=== PATIENT | female | born 1995 | race African-American/Black ===

== ENCOUNTER 2017-05-11 15:28 | Emergency (ER) | payer OTHER ==
[~2017-05-11] VITALS: Ht 160 cm; Wt 80.0 kg
[2017-05-11 15:30] VITALS: BP 135/85; PULSE 109; RESP 18; TEMP 97.7; O2SAT 100
--- NOTE | 2017-05-11 17:20 | PD ---
HPI Chief Complaint: GI Complaint Time Seen by Provider: 16:59 Travel History International Travel<30 days: No Contact w/Intl Traveler<30days: No Traveled to known affect area: No History of Present Illness HPI 21-year-old female presents to the emergency department with complaint of nausea and vomiting 3 days. Last menstrual period was in February. Does not know if she is . Denies contraception use. Denies abdominal pain, cramping, fevers, diarrhea. Denies abnormal vaginal discharge, bleeding, vaginal leakage, odor, itch, lesions. Denies dysuria, urgency, frequency. Has taken Pepto-Bismol for symptom management. No known aggravating or relieving factors. Symptoms are mild in severity. Primary care provider is Dr. Perales. No known allergies. Denies significant past medical history. Has no other medical complaints. No other modifying factors or associated signs and symptoms. PFSH Past Medical History Depression: Yes ?: Unknown LMP: 03/13/18 Past Surgical History Surgical History: No Previous Surgery Social History Alcohol Use: No Tobacco Use: No Substance Use: No Allergies-Medications (Allergen,Severity, Reaction): Coded Allergies: No Known Allergies (Unverified , 05/11/17) Reported Meds & Prescriptions Reported Meds & Active Scripts Active No Active Prescriptions or Reported Medications Review of Systems Except as stated in HPI: all other systems reviewed are Neg Physical Exam Narrative GENERAL: Well-nourished, well-developed black female patient, in no acute distress; afebrile, nontoxic-appearing SKIN: Warm and dry. HEAD: Atraumatic. Normocephalic. EYES: Pupils equal and round. No scleral icterus. No injection or drainage. ENT: Mucosa pink and moist. Airway patent. NECK: Trachea midline. CARDIOVASCULAR: Regular rate and rhythm. No murmur appreciated. RESPIRATORY: No accessory muscle use. Breath sounds clear and equal bilaterally. No retractions or tachypnea. GASTROINTESTINAL: Abdomen soft, non-tender, nondistended. Positive bowel sounds. No hepato-splenomegaly, or palpable masses. No guarding. BACK: No CVA tenderness. MUSCULOSKELETAL: No obvious deformities. No clubbing. No cyanosis. No edema. NEUROLOGICAL: Awake and alert. Oriented 3. No obvious cranial nerve deficits. Motor grossly within normal limits. Normal speech. PSYCHIATRIC: Appropriate mood and affect; insight and judgment normal. Data Data Last Documented VS Vital Signs Date Time Temp Pulse Resp B/P (MAP) Pulse Ox O2 Delivery O2 Flow Rate FiO2 05/11/17 15:30 97.7 109 18 135/85 (102) 100 Orders Orders Ed Urine Pregnancytest Poc (05/11/17 17:02) Ed Discharge Order (05/11/17 17:21) MDM Medical Decision Making Medical Screen Exam Complete: Yes Emergency Medical Condition: Yes Medical Record Reviewed: Yes Differential Diagnosis , nausea and vomiting, nausea and vomiting during , gastroenteritis Narrative Course 21-year-old female with positive test in the emergency department complaining of nausea and vomiting 3 days. She has no vaginal or urinary symptoms. Physical exam is unremarkable. Instructed patient to follow-up with [facility]. Instructed patient to follow up with primary care provider. Patient verbalizes understanding and agreement with treatment plan. Patient is medically cleared and stable for discharge. Discussed reasons to return to the emergency department. Patient agrees with treatment plan. The patients vital signs are stable and the patient is stable for outpatient follow-up and treatment. Patient discharged home, stable and in no acute distress. Diagnosis Primary Impression: Qualified Codes: Z34.90 - Encounter for supervision of normal , unspecified, unspecified trimester Additional Impression: Nausea and vomiting during Referrals: [facility] Primary Care Physician [facility]. 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
== END 2017-05-11 18:01 | disposition home or self-care (01) ==
LOC: NEPD 15:28
DX: O21.9 Vomiting of pregnancy, unspecified (principal); Z3A.00 Weeks of gestation of pregnancy not specified
CPT/HCPCS: 84703; 99281